=== PATIENT | female | born 1950 | race Caucasian/White ===

== ENCOUNTER 2018-01-07 09:26 | Day surgery (SDC) | payer OTHER ==
[2018-01-07] MEDS ORDERED: TRYPAN BLUE 0.5 ML SYR OPTH ONE (10:06)
[2018-01-07] MEDS ORDERED: BALANCED SALT IRRIG PLAIN 500 ML BTL IRR ONE ×2 (10:06)
[2018-01-07] MEDS ORDERED: NS 0.9% VIAL 10 ML ONE (10:06)
[2018-01-07] MEDS ORDERED: DUOVISC 1 KIT OPTH ONE ×2 (10:06)
[2018-01-07] MEDS ORDERED: EPINEPHRINE/PF 1 MG/ML AMP ONE ×2 (10:06)
[2018-01-07] MEDS ORDERED: CYCLOPENTOLATE 1% OPTH 2 ML ONE (10:07)
[2018-01-07] MEDS ORDERED: LIDOCAINE 2% MPF 5 ML VIAL ONE (10:07)
[2018-01-07] MEDS ORDERED: PHENYLEPHRINE 10% OPTH 5ML ONE (10:08)
[2018-01-07] MEDS ORDERED: BUPIVACAINE 0.25% PF 30 ML VIAL ONE (10:08)
[2018-01-07] MEDS ORDERED: NA CHLORIDE 0.9% 500 ML ONE (10:08)
[2018-01-07] MEDS ORDERED: PHENYLEPHRINE 10% OPTH 5ML OPTH ONE ×2 (10:15→10:20)
[2018-01-07] MEDS ORDERED: CYCLOPENTOLATE 1% OPTH 2 ML OPTH ONE ×2 (10:15→10:20)
[2018-01-07] MEDS ORDERED: PROPOFOL 200 MG/20 ML VIAL IV ONE (11:37)
[2018-01-07] MEDS ORDERED: LIDOCAINE 1% MPF 5 ML VIAL ONE (11:37)
[2018-01-07] MEDS ORDERED: MOXIFLOXACIN HCL 10 DROPS/ML **OR USE OPTH ONE (12:10)
--- NOTE | 2018-01-07 12:17 | P.BOP ---
Preoperative diagnosis: Nuclear sclerotic and cortical cataract OD Postoperative diagnosis: Same Primary procedure: Phacoemulsification with IOL OD Estimated blood loss: None Anesthesia: Local (Subtenon's infusion with anesthesia for cataract surgery) Complications: None Implants: ZCB00 +22.0 Transferred to: Other (Day surgery) Condition: Good
--- NOTE | 2018-01-07 23:26 | OP ---
Date of Procedure: 01/07/2018 Surgeon: Jodie Kwon MD Anesthesiologist: Byron Wiggins CRNA and Prateek Viramontes M.D. Preoperative Diagnosis: Nuclear sclerotic cataract, and cortical cataract, right eye. Operation Performed: Phacoemulsification with intraocular lens implant, right eye. Anesthesia: Per cataract surgery. Complications: None. Description Of Procedure: In day surgery, the patient was prepped with Betadine and draped. A conjunctival incision was made in the inferior nasal quadrant with Cesar scissors. A sub-Tenon block consisting of a 1:1 mixture of 2% Xylocaine and 0.25% bupivacaine was placed through the conjunctival incision with a blunt cannula. A Honan balloon was placed over the eye and the patient was transferred to the operating room. In the operating room the patient was prepped and draped in the usual sterile fashion for ophthalmic surgery. A lid speculum was placed in the right eye. Two paracentesis sites were made superiorly and inferiorly in the limbal cornea. Viscoat was placed in the anterior chamber and a crescent blade was used to make a corneal groove and tunnel, and a keratome was used to enter the anterior chamber. Provisc was placed in the anterior chamber and a 360 degree capsulotomy was performed with a cystitome. The lens was hydrodissected with BSS and rotated freely. The lens was removed with a stop and chop technique. A 5.56 phaco CDE was used to remove the lens. Residual cortex was removed with the irrigation and aspiration. Provisc was placed in the capsular bag. A ZCB00 +22.0 diopter lens was placed in the capsular bag without complications. Irrigation and aspiration was used to remove residual viscoelastic. The paracentesis sites were hydrated with BSS. The wound and paracentesis sites were inspected and found to be watertight. Vigamox 0.07 cc was placed intracamerally at the end of the procedure. The eye was irrigated with balanced salt solution. The eye was patched with a soft cotton patch and Jose metal shield. The patient was returned to day surgery in good condition. Discharge Instructions: Ms. Oates is discharged to home in good condition and is to follow up with Dr. Kwon in the morning. TYRA/SHANKAR Voice ID: [id number] Report ID: [id number] MTDD
== END 2018-01-07 12:51 | disposition home or self-care (01) ==
LOC: OR 09:26
PROVIDERS: ATTEND Ophthalmology Retina Specialist
PROC: 08RJ3JZ Replacement of Right Lens with Synthetic Substitute, Percutaneous Approach (ICD-10-PCS; principal; 2018-01-07 10:30)
DX: H25.11 Age-related nuclear cataract, right eye (principal); H25.011 Cortical age-related cataract, right eye; I10 Essential (primary) hypertension; J45.909 Unspecified asthma, uncomplicated; E07.9 Disorder of thyroid, unspecified; Z88.0 Allergy status to penicillin; Z88.8 Allergy status to other drugs, medicaments and biological substances
CPT/HCPCS: J0171

== ENCOUNTER 2018-02-18 10:23 | Day surgery (SDC) | payer OTHER ==
[2018-02-18] MEDS ORDERED: EPINEPHRINE/PF 1 MG/ML AMP ONE (11:01)
[2018-02-18] MEDS ORDERED: NS 0.9% VIAL 10 ML ONE (11:01)
[2018-02-18] MEDS ORDERED: BALANCED SALT IRRIG PLAIN 500 ML BTL IRR ONE (11:01)
[2018-02-18] MEDS ORDERED: DUOVISC 1 KIT OPTH ONE (11:02)
[2018-02-18] MEDS ORDERED: MOXIFLOXACIN HCL 10 DROPS/ML **OR USE OPTH ONE (11:02)
[2018-02-18] MEDS ORDERED: TRYPAN BLUE 0.5 ML SYR OPTH ONE (11:02)
[2018-02-18] MEDS ORDERED: NA CHLORIDE 0.9% 500 ML ONE (11:30)
[2018-02-18] MEDS ORDERED: LIDOCAINE 2% MPF 5 ML VIAL ONE (11:33)
[2018-02-18] MEDS ORDERED: PHENYLEPHRINE 10% OPTH 5ML ONE (11:34)
[2018-02-18] MEDS ORDERED: TETRACAINE HCL 0.5% 2ML OPTH ONE (11:34)
[2018-02-18] MEDS ORDERED: CYCLOPENTOLATE 1% OPTH 2 ML ONE (11:34)
[2018-02-18] MEDS ORDERED: BUPIVACAINE 0.25% PF 10 ML VIAL ONE (11:34)
[2018-02-18] MEDS ORDERED: CYCLOPENTOLATE 1% OPTH 2 ML OPTH ONE ×2 (11:40→11:47)
[2018-02-18] MEDS ORDERED: PHENYLEPHRINE 10% OPTH 5ML OPTH ONE ×2 (11:40→11:47)
[2018-02-18] MEDS ORDERED: PROPOFOL 200 MG/20 ML VIAL IV ONE (12:04)
[2018-02-18] MEDS ORDERED: LIDOCAINE 1% MPF 2 ML AMPULE ONE (12:04)
--- NOTE | 2018-02-18 13:15 | P.BOP ---
Preoperative diagnosis: Nuclear sclerotic and cortical cataract OS Postoperative diagnosis: Same Primary procedure: Phacoemulsification with IOL OS Estimated blood loss: None Anesthesia: Local (Subtenon's infusion with anesthesia for cataract surgery) Complications: None Implants: ZCB00 +22.5 Transferred to: Other (Day surgery) Condition: Good
--- NOTE | 2018-02-18 17:46 | OP ---
Date of Procedure: 02/18/2018 Surgeon: Jodie Kwon MD Anesthesiologist: 1. Román Malin CRNA. 2. Prateek Viramontes M.D. Preoperative Diagnosis: Nuclear sclerotic cataract and cortical cataract, left eye. Operation Performed: Phacoemulsification with intraocular lens implant, left eye. Anesthesia: Per cataract surgery. Complications: Description Of Procedure: In day surgery, the patient was prepped with Betadine and draped. A conju nctival incision was made in the inferior nasal quadrant with Cesar scissors. A sub-Tenon block c onsisting of a 1:1 mixture of 2% Xylocaine and 0.25% bupivacaine was placed through the conjunctival incision with a blunt cannula. A Honan balloon was placed over the eye and the patient was transferr ed to the operating room. In the operating room the patient was prepped and draped in the usual sterile fashion for ophthalmic surgery. A lid speculum was placed in the left eye. Two paracentesis sites were made superiorly and inferiorly in the limbal cornea. Viscoat was placed in the anterior chamber and a crescent blade wa s used to make a corneal groove and tunnel, and a keratome was used to enter the anterior chamber. P rovisc was placed in the anterior chamber and a 360 degree capsulotomy was performed with a cystitome . The lens was hydrodissected with BSS and rotated freely. The lens was removed with a stop and cho p technique. 4.90 phaco CDE was used to remove the lens. Residual cortex was removed with the irrig ation and aspiration. Provisc was placed in the capsular bag. A ZCB00 +22.5 lens was placed in the capsular bag without complications. Irrigation and aspiration was used to remove residual viscoelast ic. The paracentesis sites were hydrated with BSS. The wound and paracentesis sites were inspected and found to be watertight. Vigamox 0.07 cc was placed intracamerally at the end of the procedure. The eye was irrigated with balanced salt solution. The eye was patched with a soft cotton patch and Jose metal shield. The patient was returned to day surgery in good condition. Discharge Instructions: Ms. Oates is discharged to home in good condition. She is to follow up [facility] Dr. Kwon in the morning. JHL/MODL Voice ID: [id number] Report ID: [id number]
== END 2018-02-18 14:00 | disposition home or self-care (01) ==
LOC: OR 10:23
PROVIDERS: ATTEND Ophthalmology Retina Specialist
PROC: 08RK3JZ Replacement of Left Lens with Synthetic Substitute, Percutaneous Approach (ICD-10-PCS; principal; 2018-02-18 11:00)
DX: H25.12 Age-related nuclear cataract, left eye (principal); H25.012 Cortical age-related cataract, left eye; H43.813 Vitreous degeneration, bilateral; Z88.0 Allergy status to penicillin; I10 Essential (primary) hypertension; E03.9 Hypothyroidism, unspecified
CPT/HCPCS: J0171; J2001